=== PATIENT | female | born 1950 | race Caucasian/White ===

== ENCOUNTER 2016-04-21 11:36 | Emergency (ER) | payer MEDICARE, MEDICAID ==
[2016-04-21 11:44] VITALS: TEMP 98.3; BMI 35.6
--- NOTE | 2016-04-21 12:14 | EDPRACDOC ---
- General Information Chief Complaint: Back Pain Stated Complaint: neck and back pain Time Seen by Provider: 04/21/16 12:06 Information Source: Patient Mode Of Arrival: Car Home Medications: Home Medications Loratadine [Claritin] 10 mg PO DAILY 09/24/13 Albuterol/Ipratropium Neb [Duoneb] 3 ml NEB RTQ6 #120 nebu 06/08/14 Rivaroxaban [Xarelto] 20 mg PO DAILY@1800 #30 tablet 06/08/14 Fluticasone/Vilanterol [Breo 100/25] 1 puff INH RTDAILY 11/16/14 Lubiprostone [Amitiza] 24 mcg PO BID 11/16/14 Metformin HCl [Metformin HCl ER] 500 mg PO DAILY 11/16/14 Calcium Carbonate + Vitamin D [Oscal with Vitamin D] 500 mg PO BIDLS #1 tablet 11/24/14 Celecoxib (anti-inflammatory) [Celebrex] 200 mg PO BIDWM #1 capsule 11/24/14 Docusate-Senna Concentrate [Senokot S or Suki Colace] 2 tab PO HS #1 tablet 10/03 Amlodipine [Norvasc] 5 mg PO DAILY 08/11/15 Duloxetine [Cymbalta] 30 mg PO DAILY 08/11/15 Lisinopril 10 mg PO DAILY 08/11/15 Mometasone Furoate [Nasonex] 17 gm CATHY DAILY 08/11/15 Pioglitazone HCl [Actos] 30 mg PO DAILY 08/11/15 Ketoprofen 50 mg PO BID PRN #20 capsule 04/21/16 Allergies/Adverse Reactions: Allergies Allergy/AdvReac Type Severity Reaction Status Date / Time No Known Allergies Allergy Verified 04/21/16 11:44 - History of Present Illness Onset: WEEKS HPI: PT COMPLAINS OF THROBBING PAIN IN RIGHT BACK, WORSE WITH MOVEMENT, ALSO COMPLAINS OF PAIN WITH URINATION, N/V AND "FEVER" EVERY NIGHT. Pain Location: Reports: Right, Lumbar Pain Radiates To: Reports: None Pain Caused By: Reports: Spontaneous Circumstances: Reports: Unknown Relevant History: Reports: Chronic back pain Currently ?: No Pain Severity: Reports: Severe Pain Quality: Reports: Aching, Sharp Worsened By: Reports: Movement, Twisting Associated Signs and Symptoms: Reports: Dysuria, Nausea, Vomiting. Denies: Abdominal Pain, Hematuria ED Past Medical History - History Reviewed Yes Nurses notes reviewed and agree except as marked - Patient Medical History Cardiac History: Reports: Hypertension, Heart Attack (OR POSSIBLE TIA), Stress Test (normal stress test in November 2013 (6 months ago)), Hypercholesterolemia, Syncope Respiratory History: Reports: Asthma, COPD, Cough, Pulmonary Embolism (2014) GI/ History: Reports: Urinary Tract Infection, Gastroesophageal Reflux, IBD Musculoskeletal History: Reports: Arthritis (ADAM FOOT ROTATION, RIGHT FOOT WORSE ) Psychological History: Reports: Depression, Anxiety. Denies: Substance Use Disorder Systemic History: Reports: Diabetes - Family Medical History Reports: Hypertension, Diabetes, Cancer, Cardiac Disorders. Denies: Stroke - Social Medical History Smoking Status: Never smoker Social History: Denies: Benzodiazipine Use, Substance Use Disorder ETOH: None Substance Abuse: None EDM Review of Systems - Review of Systems Constitutional: Fever. negative: Chills Eyes: negative: Blurred Vision, Double Vision Ears: negative: Drainage Throat: negative: Pain Nose: negative: Congestion, Discharge Respiratory: Wheezing. negative: Cough, Shortness of Breath Cardiovascular: negative: Chest Pain, Palpitations Gastrointestinal: Nausea, Vomiting. negative: Diarrhea, Pain Genitourinary: Dysuria. negative: Frequency Neurological: negative: Dizziness, Numbness, Weakness Musculoskeletal: Back, Neck Integumentary: No Symptoms Reported - Physical Exam Constitutional: Alert (Awake), No apparent distress Oriented to: Time, Person, Place Last recorded Vital Signs: Last Vital Signs Temp 98.3 F 04/21/16 11:40 Pulse 69 04/21/16 11:40 Resp 18 04/21/16 11:40 BP 164/95 04/21/16 11:40 Pulse Ox 98 04/21/16 11:40 Oxygen Pulse Oxygen Saturation 98 O2 Device Room Air Oxygen Flow Rate Fraction of Inspired Oxygen ( FIO2) - HEENT Head: Normal ( normocephalic) Eye Exam: Normal (PERRL, EOMI, Sclera white) Oropharynx: Normal (Pharynx:Moist without exudate,Gums-no swelling) Tympanic Membrane: Normal ENT EAC: Normal TMJ: Normal Nose: No Symptoms Reported (septum midline) Neck: Normal (FROM, trachea at midline) - Respiratory/Cardiovascular Respiratory: Normal - CTA (BBS clear to auscultation without adventitious sounds ) Cardiovascular: Normal (RRR without murmur, gallop or rub) - GI Auscultation: Normal (NABS) Palpation: Normal (Soft,No rebound or guarding, non distended) Tenderness: Non tender Hernandez's Sign: Negative - Musculoskeletal Back: Lumbar TTP Extremities: Normal - Integumentary Skin: Normal, Warm, Dry Lymphatics: Normal (no adenopathy) - Neurologic Memory Impaired: Normal Motor Function: Normal (Normal tone, Pulses 2+ No cyanosis or edema, FROM) Cranial Nerve: Normal (CN II-X11 intact sensation, strength 5/5) Cerebellar: Normal Mood Description: Normal Perception: Normal ED Back Exam - Neurologic Motor Deficit: None - Musculoskeletal Cervical: Normal Thoracic: Normal Lumbar: Tender Midline: Normal Paraspinous: Tender Straight Leg Raise: Negative Pelvis: Normal - Differential Diagnosis DJD, HNP, Musculoskeletal pain, Pyelonephritis, Strain, Urinary tract infection - Results 04/21/16 13:19 Laboratory Results - last 24 hr 04/21/16 12:18 Urine Color Yellow Urine Clarity Sl hzy Urine pH 6.0 Ur Specific [place] 1.010 Urine Protein Neg Urine Glucose (UA) Neg Urine Ketones Neg Urine Occult Blood Neg Urine Nitrite Neg Urine Bilirubin Neg Urine Urobilinogen <2.0 Ur Leukocyte Esterase 1+ H Urine RBC 0-2 Urine WBC 2-5 Ur Epithelial Cells 2+ Urine Bacteria Few - Diagnostic Imaging L-S SPINE Image interpreted by: Radiologist LUMBAR SPINE - COMPLETE 4+ VIEW COMPARISON: MRI scan of February 06, 2013. FINDINGS: No fracture is noted. Severe degenerative disc disease is noted at L4-5. Mild grade 1 anterolisthesis of L4-5 is noted secondary to posterior facet joint hypertrophy. IMPRESSION: Severe degenerative disc disease is noted at L4-5 with grade 1 anterolisthesis at this level secondary to posterior facet joint hypertrophy. No acute abnormality seen in the lumbar spine. Decision Time to Discharge: 13:19 - Departure Disposition: Home Condition: Stable Final Diagnosis: DDD LUMBAR SPINE Instructions: Degenerative Disc Disease (ED) Education/Counseling Given To: Patient Education/Counseling Given Regarding: Diagnosis, Treatment, Prognosis, Follow Up Referrals: Jorden Mancuso MD [Primary Care Provider] - One Week Prescriptions: Ketoprofen 50 mg PO BID PRN #20 capsule PRN Reason: Pain Additional Instructions: Back Pain: apply warm compresses to affected area 20 mins at a time 4 - 5 times daily as needed for pain
[2016-04-21 12:35] LABS: LEUKOCYTES/URINE 1+ (NEGATIVE); NITRITE/URINE NEG (NEGATIVE); RBC/URINE 0-2 (0-5); URINE OCCULT BLOOD NEG (NEG/TRACE)
--- NOTE | 2016-04-21 13:06 | DIRPT ---
CLINICAL DATA: Low back pain for 2 weeks without known injury. EXAM: LUMBAR SPINE - COMPLETE 4+ VIEW COMPARISON: MRI scan of February 06, 2013. FINDINGS: No fracture is noted. Severe degenerative disc disease is noted at L4-5. Mild grade 1 anterolisthesis of L4-5 is noted secondary to posterior facet joint hypertrophy. IMPRESSION: Severe degenerative disc disease is noted at L4-5 with grade 1 anterolisthesis at this level secondary to posterior facet joint hypertrophy. No acute abnormality seen in the lumbar spine. Electronically Signed By: Jaciel Vallejo Jr, M.D. On: 04/21/2016 13:03
[2016-04-21 13:37] VITALS: BP 159/76; PULSE 57
== END 2016-04-21 13:36 | disposition home or self-care (01) ==
LOC: EDMC 11:36
DX: M51.36 Other intervertebral disc degeneration, lumbar region (principal)
CPT/HCPCS: 72110; 81001; 99283

== ENCOUNTER 2016-05-03 10:43 | Emergency (ER) | payer MEDICARE, MEDICAID ==
[2016-05-03 10:44] VITALS: BMI 35.6
--- NOTE | 2016-05-03 12:07 | EDPRACDOC ---
- General Information Chief Complaint: Flu-Like Symptoms Stated Complaint: FLU LIKE SYMPTOMS Time Seen by Provider: 05/03/16 12:01 Mode Of Arrival: Car Home Medications: Home Medications Loratadine [Claritin] 10 mg PO DAILY 09/24/13 Albuterol/Ipratropium Neb [Duoneb] 3 ml NEB RTQ6 #120 nebu 06/08/14 Rivaroxaban [Xarelto] 20 mg PO DAILY@1800 #30 tablet 06/08/14 Fluticasone/Vilanterol [Breo 100/25] 1 puff INH RTDAILY 11/16/14 Lubiprostone [Amitiza] 24 mcg PO BID 11/16/14 Metformin HCl [Metformin HCl ER] 500 mg PO DAILY 11/16/14 Calcium Carbonate + Vitamin D [Oscal with Vitamin D] 500 mg PO BIDLS #1 tablet 11/24/14 Celecoxib (anti-inflammatory) [Celebrex] 200 mg PO BIDWM #1 capsule 11/24/14 Docusate-Senna Concentrate [Senokot S or Suki Colace] 2 tab PO HS #1 tablet 10/03 Amlodipine [Norvasc] 5 mg PO DAILY 08/11/15 Duloxetine [Cymbalta] 30 mg PO DAILY 08/11/15 Lisinopril 10 mg PO DAILY 08/11/15 Mometasone Furoate [Nasonex] 17 gm CATHY DAILY 08/11/15 Pioglitazone HCl [Actos] 30 mg PO DAILY 08/11/15 Ketoprofen 50 mg PO BID PRN #20 capsule 04/21/16 Amoxicillin Trihydrate [Amoxicillin] 500 mg PO TID #21 tab 05/03/16 Hydrocodone Bit/Homatropine [Hycodan Syrup] 5 ml PO Q6 PRN #120 syrup 05/03/16 Allergies/Adverse Reactions: Allergies Allergy/AdvReac Type Severity Reaction Status Date / Time No Known Allergies Allergy Verified 04/21/16 11:44 - History of Present Illness Onset: 1 WEEK HPI: PT COMPLAINS OF COUGH PROD OF YELLOW PHLEGM, "FEVER", SORE THROAT, CONGESTION, WHEEZING, WORSENING X 1 WEEK, HAS HAD SOME NAUSEA AND DIARRHEA WELL. Current Symptoms: Reports: Cough, Fever, Headache, Nasal Symptoms, Sore Throat, Myalgia, Nausea Shortness of Breath: None Cough: Reports: Productive, Yellow Rhinorrhea: Reports: Clear Ear Symptoms: Reports: None Fever Severity/Quality: Reports: subjective Oral Intake: Normal Urinary Output: Normal Relevant History of: Asthma Associated Signs & Symptoms:: Reports: Cough, Fever, Headache, Nasal Symptoms, Sore Throat, Nausea, Diarrhea, Myalgia ED Past Medical History - History Reviewed Yes Nurses notes reviewed and agree except as marked - Patient Medical History Neurological History: Reports: Cerebrovascular Accident (? TIA) Cardiac History: Reports: Hypertension, Heart Attack, Stress Test (normal stress test in November 2013 (6 months ago)), Hypercholesterolemia, Syncope Respiratory History: Reports: Asthma, COPD, Cough, Pulmonary Embolism (2013) GI/ History: Reports: Urinary Tract Infection, Gastroesophageal Reflux, IBD Musculoskeletal History: Reports: Arthritis (ADAM FOOT ROTATION, RIGHT FOOT WORSE ) Psychological History: Reports: Depression, Anxiety. Denies: Substance Use Disorder Systemic History: Reports: Diabetes. Denies: Cancer - Family Medical History Reports: Hypertension, Diabetes, Cancer, Cardiac Disorders. Denies: Stroke - Social Medical History Smoking Status: Never smoker Social History: Denies: Benzodiazipine Use, Substance Use Disorder ETOH: None Substance Abuse: None EDM Review of Systems - Review of Systems Constitutional: Fever. negative: Chills Eyes: negative: Blurred Vision, Double Vision Ears: negative: Drainage Throat: Pain Nose: Congestion, Discharge Respiratory: Cough, Wheezing. negative: Shortness of Breath Cardiovascular: negative: Chest Pain Gastrointestinal: Diarrhea, Nausea. negative: Pain, Vomiting Genitourinary: negative: Dysuria, Frequency Neurological: Headache Musculoskeletal: No Symptoms Reported Integumentary: No Symptoms Reported - Physical Exam Constitutional: Alert (Awake), No apparent distress Oriented to: Time, Person, Place Last recorded Vital Signs: Last Vital Signs Temp 98.5 F 05/03/16 11:40 Pulse 86 05/03/16 11:40 Resp 18 05/03/16 11:40 BP 163/87 05/03/16 11:40 Pulse Ox 98 05/03/16 11:40 Oxygen Pulse Oxygen Saturation 98 O2 Device Room Air Oxygen Flow Rate Fraction of Inspired Oxygen ( FIO2) - HEENT Head: Normal ( normocephalic) Eye Exam: Normal (PERRL, EOMI, Sclera white) Oropharynx: Red Tympanic Membrane: Dull ENT EAC: Normal TMJ: Normal Nose: No Symptoms Reported (septum midline) Neck: Normal (FROM, trachea at midline) - Respiratory/Cardiovascular Respiratory: Wheezes (FEW, SCATTERED). negative: Accessory Muscle Use, Retractions Cardiovascular: Normal (RRR without murmur, gallop or rub) - Integumentary Skin: Normal, Warm, Dry Lymphatics: Normal (no adenopathy) - Neurologic Memory Impaired: Normal Motor Function: Normal (Normal tone, Pulses 2+ No cyanosis or edema, FROM) Cranial Nerve: Normal (CN II-X11 intact sensation, strength 5/5) Cerebellar: Normal Mood Description: Normal Perception: Normal - Differential Diagnosis Bronchitis, Influenza A B, Otitis Media, Pneumonia, Sinusitis, URI Decision Time to Discharge: 12:07 - Departure Disposition: Home Condition: Stable Final Diagnosis: Acute bronchitis Qualifiers: Bronchitis organism: unspecified organism Qualified Code(s): J20.9 - Acute bronchitis, unspecified Instructions: Acute Bronchitis (ED) Education/Counseling Given To: Patient Education/Counseling Given Regarding: Diagnosis, Treatment, Prognosis, Follow Up Referrals: Twan Mancuso MD [Primary Care Provider] - One Week Prescriptions: Amoxicillin Trihydrate [Amoxicillin] 500 mg PO TID #21 tab Hydrocodone Bit/Homatropine [Hycodan Syrup] 5 ml PO Q6 PRN #120 syrup PRN Reason: Cough Additional Instructions: Rest, drink plenty of fluids, use Tylenol every 4 hours and Motrin every 6 hours as needed for pain or fever, return to the ED for any worsening symptoms or concerns.
[2016-05-03 12:55] VITALS: BP 140/79; PULSE 79; TEMP 98.7
== END 2016-05-03 12:58 | disposition home or self-care (01) ==
LOC: EDMC 10:43
DX: J20.9 Acute bronchitis, unspecified (principal)
CPT/HCPCS: 99282